=== PATIENT | female | born 1950 | race Caucasian/White ===

== ENCOUNTER 2016-10-30 16:54 | Emergency (ER) | payer OTHER ==
[~2016-10-30] VITALS: Ht 167.6 cm; Wt 72.6 kg
== END 2016-10-30 18:21 | disposition home or self-care (01) ==
LOC: ED 16:54
DX: S90.851A Superficial foreign body, right foot, initial encounter (principal); W45.8XXA Other foreign body or object entering through skin, initial encounter
CPT/HCPCS: 99282

== ENCOUNTER 2018-09-12 11:54 | Emergency (ER) | payer MEDICARE ==
[~2018-09-12] VITALS: Ht 167.6 cm; Wt 77.1 kg
--- OUTSIDE RECORDS SUMMARY | ~2018-09-12 | XMS | Clinical Summary ---
Demographics + + + | Address | [address] | | | [place] [address] | + + + | Home Phone | | + + + | Preferred Language | Unknown | + + + | Marital Status | | + + + | Buddhist Affiliation | Unknown | + + + | Race | White | + + + | Ethnic Group | or | + + + Author + + + | Author | [facility] | + + + | Organization | [facility] | + + + | Address | Unknown | + + + | Phone | Unavailable | + + + Support + + + + + | Name | Relationship | Address | Phone | + + + + + | Kai Cedergreen | ECON | [address] | | | | | [place] | | | | | [address] | | + + + + + Care Team Providers + +------+ + | Care Metal Pattern Maker Name | Role | Phone | + +------+ + PP | Unavailable | + +------+ + Source Comments JOSUE is fully live on both [facility] Ambulatory and [facility] InPatient.[facility] Allergies Not on File Medications Not on file Active Problems Not on file Social History + +-------+ +--------+------+ | Tobacco Use | Types | Packs/Day | Years | Date | | | | | Used | | + +-------+ +--------+------+ | Never Assessed | | | | | + +-------+ +--------+------+ + + + | Sex Assigned at | Date Recorded | | | | + + + | Not on file | | + + + + + + + | Job Start Date | Occupation | Industry | + + + + | Not on file | Not on file | Not on file | + + + + + + + + | Travel History | Travel Start | Travel End | + + + + + + | No recent travel history available. | + + Plan of Treatment + + + + + | Health Maintenance | Due Date | Last Done | Comments | + + + + + | Pneumococcal (Adult) | | | | | (1 of 2 - PCV13) | 7 | | | + + + + + | Influenza (Flu) | | | | | vaccination (Season | 9 | | | | Ended) | | | | + + + + + Results Not on filefrom Last 3 Months Insurance + +--------+ +--------+ + +--------+ | Payer | Benefi | Subscriber | Effect | Phone | Address | Type | | | t Plan | ID | luis daniel | | | | | | / | | Dates | | | | | | Group | | | | | | + +--------+ +--------+ + +--------+ | MEDICARE | MEDICA | xxxxxxxxxx | Effect | [phone] | [address] | [address] | | | RE A & | | luis daniel | [address] | [address] | re | | | B | | for | | [place] | | | | | | all | | [phone] | | | | | | dates | | | | + +--------+ +--------+ + +--------+ + +--------+ +--------+ + + | Guarantor Name | Accoun | Relation to | Date | Phone | Billing Address | | | t Type | Patient | of | | | | | | | | | | + +--------+ +--------+ + + | Tequila Cottrell | Person | Self [birth year] | [address] | | | al/Fam | | 1950 | [phone] | [place] | | | jb | | | 6 (Home) | [phone] | + +--------+ +--------+ + +"
--- OUTSIDE RECORDS SUMMARY | ~2018-09-12 | XMS | Encounter Summary ---
Demographics + + + | Address | [address] | | | [place] [address] | + + + | Home Phone | | + + + | Preferred Language | Unknown | + + + | Marital Status | | + + + | Adventism Affiliation | Unknown | + + + | Race | White | + + + | Ethnic Group | or | + + + Author + + + | Author | [facility] | + + + | Organization | [facility] | + + + | Address | Unknown | + + + | Phone | Unavailable | + + + Support + + + + + | Name | Relationship | Address | Phone | + + + + + | Kai Cottrell | ECON | [address] | | | | | [place] | | | | | [address] | | + + + + + Care Team Providers + +------+ + | Care Powder Nipper Name | Role | Phone | + +------+ + PCP | Unavailable | + +------+ + Encounter Details +--------+ + + + + | Date | Type | Department | Care Team | Description | +--------+ + + + + | 10/18/ | Ancillary | Registration [address] | [place], | | | 2005 | Registratio | Dolores Omalley | MD [place] [address] | | | | n | [facility] Mailcode: | [address] | | | | | [address] [place], [place] | [place], [place] | | | | | [address] | [address] | | | | | [phone] | [phone] | | | | | | | | +--------+ + + + + Social History + +-------+ +--------+------+ | Tobacco [...] recent travel history available. | + + documented as of this encounter Plan of Treatment Not on filedocumented as of this encounter Procedures + +--------+ + + + | Procedure Name | Priori | Date/Time | Associated Diagnosis | Comments | | | ty | | | | + +--------+ + + + | ALLERGEN-SPECIFIC | Routin | 10/18/2005 | | Results for this | | IGE ANTIBODY | e | 11:14 AM | | procedure are in the | | | | PDT | | results section. | + +--------+ + + + documented in this encounter Results ALLERGEN-SPECIFIC IGE ANTIBODY (10/18/2005 11:14 AM PDT) + + + + + + | Component | Value | Ref Range | Performed | Pathologist | | | | | At | Signature | + + + + + + | IGE SINGLE | Soybean | | [facility] | | | ANTIGEN, | | | DEPARTMENT | | | SERUM | | | OF | | | | | | PATHOLOGY | | + + + + + + | ANTIGEN, | 0Comment: | Class | [facility] | | | IGE LEVEL | Antigen | | DEPARTMENT | | | | IgE | | OF | | | | Ranges: | | PATHOLOGY | | | | 0 = Absent or | | | | | | Undetectable | | | | | | 1+ = | | | | | | LOW | | | | | | 2+ = | | | | | | MODERATE | | | | | | 3+ = | | | | | | HIGH | | | | | | 4+ = VERY | | | | | | HIGH | | | | | | 5+ = VERY | | | | | | HIGH | | | | | | 6+ = VERY HIGH | | | | + + + + + + + + | Specimen | + + | | + + + + + + + | Performing | Address | City/State/Zipcode | Phone Number | | Organization | | | | + + + + + | [facility] | [address] | [place] [address] | | | PATHOLOGY | [address] | | | + + + + + | [facility] | [address] | [place] [address] | | | PATHOLOGY | [address] | | | + + + + + documented in this encounter Visit Diagnoses Not on filedocumented in this encounter"
--- OUTSIDE RECORDS SUMMARY | ~2018-09-12 | XMS | Encounter Summary ---
Demographics + + + | Address | [address] | | | [place] [address] | + + + | Home Phone | | + + + | Preferred Language | Unknown | + + + | Marital Status | | + + + | Christian Affiliation | Unknown | + + + | Race | White | + + + | Ethnic Group | or | + + + Author + + + | Author | [facility] | + + + | Organization | [facility] | + + + | Address | Unknown | + + + | Phone | Unavailable | + + + Support + + + + + | Name | Relationship | Address | Phone | + + + + + | Kai Cottrell | ECON | [address] | | | | | [place] | | | | | [address] | | + + + + + Care Team Providers + +------+ + | Care Poultry Farm Laborer Name | Role | Phone | + [...] [address] | | | | n | [facility] Mailcode: | [address] | | | | | [address] [place] | [place], [place] | | | | | [address] | [address] | | | | | [phone] | [phone] | | | | | | | [...] | + + + + + | [facility] | [address] | [place] [address] | | | PATHOLOGY | [address] | | | + + + + + | [facility] | [address] | [place] [address] | | | PATHOLOGY | [address] | | | + + + + + documented in this encounter Visit Diagnoses Not on filedocumented in this encounter"
--- OUTSIDE RECORDS SUMMARY | ~2018-09-12 | XMS | Encounter Summary ---
Demographics + + + | Address | [address] | | | [place] [address] | + + + | Home Phone | | + + + | Preferred Language | Unknown | + + + | Marital Status | | + + + | Pentecostalism Affiliation | Unknown | + + + | Race | White | + + + | Ethnic Group | or | + + + Author + + + | Author | [facility] | + + + | Organization | [facility] | + + + | Address | Unknown | + + + | Phone | Unavailable | + + + Support + + + + + | Name | Relationship | Address | Phone | + + + + + | Kai Cottrell | ECON | [address] | | | | | [place] | | | | | [address] | | + + + + + Care Team Providers + +------+ + | Care Emergency Planner Name | Role | Phone | + +------+ + PCP | Unavailable | + +------+ + Encounter Details +--------+ + + + + | Date | Type | Department | Care Team | Description | +--------+ + + + + | 04/27/ | Hospital | Dermatopathology | | | | 2018 | Encounter | [address] | | | | | | Mail Code: [address]16[address] | | | | | | [facility] | | | | | | and Healing, 5th | | | | | | floor [place], [place] | | | | | | [address] | | | | | | [phone] | | | +--------+ + + + [...] Not on filedocumented as of this encounter Visit Diagnoses Not on filedocumented in this encounter"
--- OUTSIDE RECORDS SUMMARY | ~2018-09-12 | XMS | Encounter Summary ---
Demographics + + + | Address | [address] | | | [place] [address] | + + + | Home Phone | | + + + | Preferred Language | Unknown | + + + | Marital Status | | + + + | Advent Affiliation | Unknown | + + + | Race | White | + + + | Ethnic Group | or | + + + Author + + + | Organization | Unknown | + + + | Address | Unknown | + + + | Phone | Unavailable | + + + Support + + + + + | Name | Relationship | Address | Phone | + + + + + | Kai Cottrell | ECON | [address] | | | | | [place] | | | | | [address] | | + + + + + Care Team Providers + +------+ + | Care Merchandising Director Name | Role | Phone | + +------+ + PCP | Unavailable | + +------+ + Encounter Details +--------+ + + + + | Date | Type | Department | Care Team | Description | +--------+ + + + + | 07/30/ | Results | | Other, Faculty | | | 2004 | Only | | [phone] | | +--------+ + + + + [...] | + +--------+ + + + | DERMATOPATHOLOGY([facility] Routin | 07/31/2003 | | Results for this | | [facility]) | e | | | procedure are in the | | | | | | results section. | + +--------+ + + + documented in this encounter Results DERMATOPATHOLOGY(W[facility]) (07/31/2003) + + + + + + | Component | Value | Ref Range | Performed | Pathologist | | | | | At | Signature | + + + + + + | DERMATOPATH | SOURCE OF SPECIMEN:A | | | | | OLOGY(WET | FIRST TISSUE LEVEL | | | | | MNT) | IV [id number] OF | | | | | | SPECIMEN:B FIRST TISSUE | | | | | | [place] [address] | | | | | | CLINICAL | | | | | | DESCRIPTION:A. 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 Punch, | | | | | | scalp; pt. with scarring | | | | | | alopecia; not clearing | | | | | | withantibiotics; no | | | | | | cultures sharing staph. | | | | | | GROSS | | | | | | DESCRIPTION:A. Scalp, | | | | | | punch, 0.5 x 0.5 cm, | | | | | | bisected.B. Scalp, | | | | | | punch, 0.5 x 0.4 cm, | | | | | | bisected. MICROSCOPIC | | | | | | DESCRIPTION:Both | | | | | | biopsies show similar | | | | | | changes though more | | | | | | pronounced in the A | | | | | | biopsy.In each, there is | | | | | | hyperkeratosis, | | | | | | hypergranulosis and | | | | | | epidermal | | | | | | hyperplasiawith fibrosis | | | | | | in the papillary | | | | | | dermis. In addition, | | | | | | there are pigmentcasts | | | | | | and fragmented hair | | | | | | shaft fragments with | | | | | | little inflammation | | | | | | orfibrosis. 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 | | | | | | HERON/jyi08/05/2002Renderin | | | | | | g | | | | | | Diagnostician: Weio | | | | | | carolina Leger Jr., | | | | | | Mati | | | | | | jesus manuel Signed | | | | | | 08/06/2003Comment: | | | | | | SOURCE OF SPECIMEN: | | | | | | FIRST TISSUE LEVEL IV | | | | | | [id number]-[id number] TISSUE LEVEL | | | | | | [place] [address] | | | | + + + + + + + + | Specimen | + + | | + + + + + | Narrative | Performed At | + + + | Ordered by Eliceo Granger L | | + + + + + + + + | Performing | Address | City/State/Zipcode | Phone Number | | Organization | | | | + + + + + | [facility] | [address] | [place] [address] | | | DERMATOPATHOLOGY | [address] | | | + + + + + documented in this encounter Visit Diagnoses Not on filedocumented in this encounter"
--- OUTSIDE RECORDS SUMMARY | ~2018-09-12 | XMS | Encounter Summary ---
Demographics + + + | Address | [address] | | | [place] [address] | + + + | Home Phone | | + + + | Preferred Language | Unknown | + + + | Marital Status | | + + + | Druze Affiliation | Unknown | + + + | Race | White | + + + | Ethnic Group | or | + + + Author + + + | Author | [facility] | + + + | Organization | [facility] | + + + | Address | Unknown | + + + | Phone | Unavailable | + + + Support + + + + + | Name | Relationship | Address | Phone | + + + + + | Kai Cottrell | ECON | [address] | | | | | [place] | | | | | [address] | | + + + + + Care Team Providers + +------+ + | Care Institutional Cook Name | Role | Phone | + [...] [address] | | | | | | [facility] | | | | | | and Healing, 5th | | | | | | floor [place], [place] | | | | | | [address] | | | | | | [phone] | | | +--------+ + + + [...]
--- OUTSIDE RECORDS SUMMARY | ~2018-09-12 | XMS | Clinical Summary ---
Demographics + + + | Address | [address] | | | [place] [address] | + + + | Home Phone | | + + + | Preferred Language | Unknown | + + + | Marital Status | | + + + | Roman Catholic Affiliation | Unknown | + + + [...] [place] | | | | | [address] | | + + + + + Care Team Providers + +------+ + | Care Library Serials Assistant Name | Role | Phone | + +------+ + PP | Unavailable | + +------+ + Source Comments JOSUE is fully live on both [facility] Ambulatory and [facility] InPatient.[facility] & [facility] Allergies Not on File Medications Not on [...] | MEDICA | xxxxxxxxxx | Effect | [phone] | [address] | [address] | | | RE A & | | l[place] daniel | [address] | [address] | re | | | B | | for | | [place] | | | | | | all | | [phone] | | | | | | dates [...] Person | Self | [birth year] | [address] | | | al/Fam | | 1950 | [phone] | [place] | | | jb | | | 6 (Home) | [phone] | + +--------+ +--------+ + +"
--- OUTSIDE RECORDS SUMMARY | ~2018-09-12 | XMS | Encounter Summary ---
Demographics + + + | Address | [address] | | | [place] [address] | + + + | Home Phone | | + + + | Preferred Language | Unknown | + + + | Marital Status | | + + + | Yarsanism Affiliation | Unknown | + + + [...] [place] | | | | | [address] | | + + + + + Care Team Providers + +------+ + | Care Solar Electric Practitioner Name | Role | Phone | + +------+ + PCP | Unavailable | + +------+ + Encounter Details +--------+ + + + + | Date | Type | Department | Care Team | Description | +--------+ + + + + | 07/30/ | Results | | Other, Faculty | | | 2004 | Only | | [phone] | | +--------+ + + + + [...] | + +--------+ + + + | DERMATOPATHOLOGY([facility] Routin | 07/31/2003 | | Results for this | | [facility]) | e | | | procedure are in the | | | | | | results section. | + +--------+ + + + documented in this encounter Results DERMATOPATHOLOGY(WET [facility]) (07/31/2003) + + + + + + | Component | Value | Ref Range | Performed | Pathologist | | | | | At | Signature | + + + + + + | DERMATOPATH | SOURCE OF SPECIMEN:A | | | | | OLOGY(WET | FIRST TISSUE LEVEL | | | | | MNT) | IV [id number] OF | | | | | | SPECIMEN:B FIRST TISSUE | | | | | | [place] [address] | | | | | | CLINICAL [...] IV | | | | | | [address]-RDRUV TISSUE LEVEL | | | | | | [place] [address] | | | | + + + [...] [facility] | [address], [address] | [place] [address] | | | DERMATOPATHOLOGY | [address] | | | + + + + + documented in this encounter Visit Diagnoses Not on filedocumented in this encounter"
[~2018-09-12 11:54] MED LIST: NATURE-THROID65 MG PO; PREGNENOLONE
--- NOTE | 2018-09-12 16:52 | EKG ---
[facility] [address] [facility] [place] [address] Signed Normal sinus rhythm Normal ECG No previous ECGs available Confirmed by ISELA GRAJEDA MD ([id number]) on 09/12/2018 4:52:46 PM Electronically Signed By: ISELA GRAJEDA MD 09/12/18 1652 PATIENT NAME: AYDEN COLINDRES LORENZO Electrocardiogram DATE OF : 52 PHYSICIAN: ISELA GRAJEDA MD REPORT #: [id number] REPORT IS CONFIDENTIAL AND NOT TO BE RELEASED WITHOUT AUTHORIZATION
== END 2018-09-12 14:20 | disposition home or self-care (01) ==
LOC: ED 11:54
DX: M54.2 Cervicalgia (principal); R06.00 Dyspnea, unspecified; M79.601 Pain in right arm; E03.9 Hypothyroidism, unspecified; Z88.8 Allergy status to other drugs, medicaments and biological substances; Z79.899 Other long term (current) drug therapy
CPT/HCPCS: 71045; 80053; 84484; 85025; 85379; 93005; 93010; 99284-25

== ENCOUNTER 2018-10-10 13:13 | Emergency (ER) | payer MEDICARE ==
[~2018-10-10] VITALS: Ht 167.6 cm; Wt 73.9 kg
[~2018-10-10 13:13] MED LIST changes: +PREGNENOLONE PO
--- OUTSIDE RECORDS SUMMARY | 2018-10-10 13:18 | XMS ---
PreManage Notification: AYDEN COLINDRES Security Manager Editorial Events No recent Security Events currently on file CRITERIA MET - [facility] - 2 Visits in 30 Days CARE PROVIDERS DONNA DE GUZMAN Physician Traffic Manager 09/12/2018-Current PHONE: Unknown Zoya has no Care Guidelines for this patient. Ruby VISIT COUNT (12 MO.) 2 [facility] TOTAL 2 NOTE: Visits indicate total known visits. ED/UCC VISIT TRACKING (12 MO.) 10/10/2018 13:15 [facility] [place] TYPE: Emergency COMPLAINT: - HEAD PAIN, LEFT ARM PAIN, NECK PAIN 09/12/2018 11:56 [facility] [place] TYPE: Emergency COMPLAINT: - NECK PAIN DIAGNOSES: - Hypothyroidism, unspecified - Allergy status to other drugs, medicaments and biological substances status - Cervicalgia - Other laborer marine terminal (current) drug therapy - Pain in right arm - Dyspnea, unspecified INPATIENT VISIT TRACKING (12 MO.) No inpatient visits to display in this time frame [email or web address]
[2018-10-10] MEDS ORDERED: PROMETHAZINE HC25 M1 PO (16:39)
[2018-10-10] MEDS ORDERED: ONDANSETRON ODT4 MG PO (16:39)
[2018-10-10] MEDS ORDERED: NORCO 7.5-3251 EACH PO (16:39)
== END 2018-10-10 17:20 | disposition home or self-care (01) ==
LOC: ED 13:13
DX: M54.2 Cervicalgia (principal); M89.9 Disorder of bone, unspecified; C69.21 Malignant neoplasm of right retina; E03.9 Hypothyroidism, unspecified; Z88.8 Allergy status to other drugs, medicaments and biological substances
CPT/HCPCS: 70450; 72125; 80053; 85025; 96374; 96375; 99284-25; J1170; J2405; J2550

== ENCOUNTER 2018-10-12 08:47 | Observation (INO) | payer MEDICARE ==
[~2018-10-12] VITALS: Ht 167.6 cm; Wt 74.1 kg
[~2018-10-12 08:47] MED LIST changes: +NORCO 7.5-3251 EACH PO; +ONDANSETRON ODT4 MG PO; +PROMETHAZINE HC25 M1 PO
--- OUTSIDE RECORDS SUMMARY | 2018-10-12 08:50 | XMS ---
PreManage Notification: AYDEN COLINDRES Security Delivery And Installation Subcontractor Events No recent Security Events currently on file CRITERIA MET - [facility] - 2 Visits in 30 Days CARE PROVIDERS DONAN DE GUZMAN Physician Metallurgist Helper 09/12/2018-Current PHONE: Unknown Zoya has no Care Guidelines for this patient. Ruby VISIT COUNT (12 MO.) 3 [facility] TOTAL 3 NOTE: Visits indicate total known visits. ED/UCC VISIT TRACKING (12 MO.) 10/12/2018 08:48 [facility] [place] TYPE: Emergency COMPLAINT: - VOMITING/BACK PAIN/NO INJURY 10/10/2018 13:15 [facility] [place] TYPE: Emergency COMPLAINT: - HEAD PAIN, RIGHT ARM PAIN, NECK PAIN 09/12/2018 11:56 [facility] [place] TYPE: Emergency COMPLAINT: - NECK PAIN DIAGNOSES: - Hypothyroidism, unspecified - Allergy status to other drugs, medicaments and biological substances status - Cervicalgia - Other shelter (current) drug therapy - Pain in right arm - Dyspnea, unspecified INPATIENT VISIT TRACKING (12 MO.) No inpatient visits to display in this time frame [email or web address]
--- NOTE | 2018-10-12 15:33 | NUR ---
PT ARRIVED TO FLOOR IN WHEELCHAIR. SHE STATED SHE WAS HUNGRY, GAVE HER CRACKERS AND ORDERED SOUP. PT TOLERATED SOUP WELL. XRAY IN ROOM TO DO VIEWS OF RIGHT ARM. PT TOLERATING IV FLUIDS WELL, KEPT SOUP AND LACTULOSE DOWN. PT GIVEN INFO ON ADVANCED DIRECTIVE PER HER REQUEST.
--- NOTE | 2018-10-12 16:30 | NUR ---
PT IS RESTING COMFORTABLY. PT TOLERATING IVF WELL. NO COMPLAINTS OF PAIN OR NAUSEA.
--- NOTE | 2018-10-12 17:42 | NUR ---
NO REPORTS OF PAIN OR NAUSEA SINCE ARRIVING ON THE FLOOR. TOLERATED SOUP WELL. RESTING COMFORTABLY. SCD IN PLACE. IVF RUNNING. NO EFFECTS FROM LACTULOSE, NO BM IN 10 DAYS.
--- NOTE | 2018-10-12 19:37 | NUR ---
VISITING WITH FAMILY, C/O 08/31 GENERALIZED R ARM, NECK AREA. MEDICATED
--- NOTE | 2018-10-12 21:30 | NUR ---
PT AWAKE, ALERT, ORIENTED, NO C/O PAIN OR LIGHTHEADNESS, DR GRAJEDA NOTIFIED. ABOUT PT GETTING AN EARLY DOSE OF OXYCONTIN, NO NEW ORDERS
--- NOTE | 2018-10-12 21:31 | NUR ---
BENCH TECHNICIAN ROUNDING NOTE. PT QUESTIONS REGARDING NAUSEA MEDICATION. QUESTIONS ANSWERED. PT DENIES FURTHER NEEDS AT THIS TIME. CALL LIGHT IN REACH.
--- NOTE | 2018-10-12 21:57 | NUR ---
up to br, voided large amounts of clear yellow urine, no c/o pain, no n/v. steady walk, alert. cooperative. no lightheadness, did own hs care. Back to bed. no bm, passing flatus
--- NOTE | 2018-10-12 23:44 | NUR ---
v/o feeling nauseated. Medicated with Phenergan 12.5mg IV.
--- NOTE | 2018-10-13 02:40 | NUR ---
resting, awakes easily, no further c/opainor n/v. ivf infusing, scds in place, call light at bedside
--- NOTE | 2018-10-13 04:02 | NUR ---
RESTING, EYES CLOSED, NO DISTRESS, NO N/V. CALL LIGHT AT BEDSIDE, IVF INFUSING
--- NOTE | 2018-10-13 05:06 | NUR ---
PT WAS MEDICATED EARLIER WITH OXYCODONE 20MG PER C/O OF R SIDED NECK,BACK,SHOULDER AND ARM PAIN, WOTH GOOOD PAIN RELIEF. C/O DRY HEAVING AND FEELING NAUSEATED. WAS MEDICATED WITH PHENERGAN 12.5MG IV WITH GOOD RELIEF. HAS SLEPT GOOD THIS SHIFT AT LEAST 6 HOURS. NO DISTRESS, ON ROOM AIR. AWAKES EASILY. UP TO BR WITH 1 PERSON ASSIST, VOIDING QS. PT AWARE OF POSSIBLE TRANSFER TO ANOTHER FACILITY FOR PALLIATIVE/CHEMO TX CARE. CALL LIGHT AND FLUIDS AT BEDSIDE, TOLERATING CLEAR LIQUIDS WELL. IVF INFUSING W/O PROBLEMS
--- NOTE | 2018-10-13 06:57 | NUR ---
up to br, no c/opain or n/v, tolerated well, stated feeling so much better this am as she slept 6-8 hours this shift.
--- NOTE | 2018-10-13 07:24 | NUR ---
RECIEVED BEDSIDE REPORT FROM MAHESH DIAMOND. PT AWAKE AND ALERT IN BED. PT AND RN REPORT PT SLEPT WELL FOR AT LEAST 8 HRS ONCE PAIN AND NAUSEA WAS CONTROLLED.
--- NOTE | 2018-10-13 07:58 | NUR ---
PT IS CALM AND RELAXED. NO C/O PAIN OR NAUSEA. PT ON PHONE WITH FAMILY AT THIS TIME AND EXPLAINING SHE IS COMFORTABLE WITH THE PATH OF HER LIFE AND ACCEPTING OF HER DX AND PLAN OF CARE. PT IS LAUGHING AND JOKING WITH FAMILY ON THE PHONE.
--- NOTE | 2018-10-13 10:13 | NUR ---
PT DISCUSSED WITH RN HESITATION RE: RADIATION AND SIDE EFFECTS. SHE IS CONCERNED ABOUT THE SIDE EFFECTS OF RADIATION AND THE QUALITY OF HER LIFE. RN DISCUSSED HOSPICE TO KEEP QUALITY OF LIFE AND PAIN CONTROL. PT WAS AGREEABLE TO THAT IDEA. SHE STATES SHE IS NOT AFRAID OF , NOT ANGRY, BUT ACCEPTING AND UNDERSTANDING. PT HAS A STRONG ROXANNE BACKGROUND AND IS CONTENT AT THIS TIME. CURRENT PAIN CONTROL AND NAUSEA CONTROL IS EFFECTIVE. PT IS IN THE SHOWER, WILL CALL WHEN SHE IS DONE.
--- NOTE | 2018-10-13 11:13 | NUR ---
PT WOULD LIKE TO DONATE A LARGE HOUSE PLANT TO THE HOSPITAL. PT GAVE PERMISSION TO GIVE HER INFORMATION TO SLOANE ROSARIO TO FACLITATE DONATION IF POSSIBLE. EMAIL SENT TO [facility].
[2018-10-13] MEDS ORDERED: OXYCONTIN20 MG PO (11:16)
[2018-10-13] MEDS ORDERED: OXYCODONE HCL10 MG PO (11:17)
[2018-10-13] MEDS ORDERED: ONDANSETRON ODT4 MG SL (11:18)
[2018-10-13] MEDS ORDERED: PROMETHAZINE12.5 M1 PO (11:19)
[2018-10-13] MEDS ORDERED: SENNA8.6 MG PO (11:20)
[2018-10-13] MEDS ORDERED: LACTULOSE10 GM/15 M PO (11:21)
[2018-10-13] MEDS ORDERED: DEXAMETHASONE1 MG PO (11:22)
--- NOTE | 2018-10-13 13:20 | NUR ---
PT DISCHARGE TEACHING COMPLETE. DISCUSSED WITH PT PAIN CONTROL MEDICATIONS, FOLLOW UP, WHEN TO CALL THE DR, AND GENERAL FOLLOW UP. DISCUSSED POLST FORM, OPTIONS, AND IMPLICATIONS. PT SIGNED POLST AND COPY WAS PLACED IN HER CHART. IV REMOVED, VS TAKEN, ALL PERSONAL BELONGINGS REMOVED FROM ROOM. PT TAKEN OUT IN WHEELCHAIR BY JS.
== END 2018-10-13 13:16 | disposition home or self-care (01) ==
LOC: ED 08:47 → MS 08:49
PROVIDERS: ADMIT Internal Medicine
DX: G89.3 Neoplasm related pain (acute) (chronic) (principal); C43.9 Malignant melanoma of skin, unspecified; C78.02 Secondary malignant neoplasm of left lung; C78.01 Secondary malignant neoplasm of right lung; C78.7 Secondary malignant neoplasm of liver and intrahepatic bile duct; C78.89 Secondary malignant neoplasm of other digestive organs; C77.1 Secondary and unspecified malignant neoplasm of intrathoracic lymph nodes; C79.51 Secondary malignant neoplasm of bone; C77.2 Secondary and unspecified malignant neoplasm of intra-abdominal lymph nodes; E03.9 Hypothyroidism, unspecified; Z88.8 Allergy status to other drugs, medicaments and biological substances; Z79.891 Long term (current) use of opiate analgesic; Z79.899 Other long term (current) drug therapy
CPT/HCPCS: 71260; 73060; 74177; 96361; 96375; 96376; 99284-25; G0378; J1100; J1170; J1885; J2405; J2550; J7030; J7120; Q9967